=== PATIENT | male | born 1965 | race Two or more races ===

== ENCOUNTER 2023-01-31 11:19 | Emergency (ER) | payer OTHER, SELFPAY ==
--- NOTE | ~2023-01-31 | CT_ITS ---
EXAMINATION: CT ABDOMEN AND PELVIS WITH CONTRAST CLINICAL INFORMATION: Abdominal pain. Question ventral hernia. COMPARISON: None available. TECHNIQUE: Multidetector volumetric images were obtained from the superior aspect of the liver through the pubic symphysis following administration 85 mL of Omnipaque 350 intravenous contrast. Sagittal and coronal reformatted images were obtained on the technologist's workstation. Oral contrast: Yes This CT examination was performed using dose optimization techniques as appropriate, variously including the following: *Automated exposure control *Adjustment of mA and/or kV according to patient size (this includes techniques or standardized protocols for targeted exams where dose is matched to indication/reason for exam; i.e. extremities or head) *Use of iterative reconstruction technique DLP: 888 mGy-cm FINDINGS: LUNG BASES: The visualized lung bases are unremarkable. LIVER, GALLBLADDER, AND BILIARY TREE: Fatty liver. The liver is otherwise normal. The gallbladder is unremarkable with no evidence of radiopaque gallstones, gallbladder wall thickening, or obvious pericholecystic inflammatory changes. PANCREAS: Unremarkable. SPLEEN: Unremarkable. ADRENAL GLANDS: Unremarkable. KIDNEYS AND URETERS: There is a left renal cortical thinning or scarring. Small bilateral renal cysts. No imaging follow-up recommended. Question tiny 1 to 2 mm right lower pole renal stone coronal reconstructed image 49. Kidneys are otherwise normal. BLADDER: Unremarkable. GASTROINTESTINAL TRACT: The small and large bowel are unremarkable. The appendix is unremarkable. ABDOMINAL WALL: Postoperative change to the anterior abdominal wall. No hernia or fluid collection. LYMPH NODES: Normal. VASCULAR: Unremarkable. PELVIC VISCERA: Unremarkable. OSSEOUS STRUCTURES: Degenerative disc disease at L5-S1. CT/CT abdomen pelvis w IV con IMPRESSION: No acute findings. Fatty liver. Left renal cortical thinning or scarring. Question tiny right renal stone. Fleischner guidelines were followed.
--- NOTE | ~2023-01-31 | US_ITS ---
EXAMINATION: US SCROTUM CLINICAL INFORMATION: Left testicular swelling. COMPARISON: None available. TECHNIQUE: A sonogram of the scrotum was performed assessing trivedi-scale appearance and color Doppler flow. Spectral Doppler analysis of the arterial and venous flow were performed in the testes bilaterally. FINDINGS: RIGHT: Right testicle measures 3.7 x 2.2 x 2.7 cm, volume 11.5 mL. No focal testicular parenchymal lesions are visualized. Spectral Doppler analysis of the arterial and venous flow is normal in the right testis. Right epididymal head is normal in size. There is a small epididymal head cyst measuring 4 mm. There is a small right hydrocele. No right varicocele is seen. Right epididymal Doppler flow is normal. LEFT: Left testicle measures 3.1 x 2.1 x 2.2 cm, volume 7.4 mL. Left testicle echotexture is heterogeneous. No focal testicular parenchymal lesions are visualized. Spectral Doppler analysis of the arterial and venous flow is present but appears decreased in the left testis compared to the right. It is uncertain whether this could be related to the large hydrocele. Left epididymal head is normal in size. Small left epididymal head cyst measuring 4 mm. Large left hydrocele. This is minimally complex with several septations. No left varicocele is seen. Left epididymal Doppler flow is decreased. US/US scrotum IMPRESSION: Small heterogeneous left testicle. No focal lesion seen. Large left hydrocele. Arterial and venous flow documented to the left testicle but appears decreased compared to the right side. It is uncertain whether this is artifactual due to the large hydrocele. If there is clinical suspicion of torsion, nuclear medicine scan would be recommended. There is also slight decrease Doppler flow seen in the left epididymis. Small bilateral epididymal head cysts. Small right hydrocele.
[2023-01-31 11:48] VITALS: BP 150/104; PULSE 97; RESP 17; TEMP 36.6; O2SAT 96; BMI 24.3
--- NOTE | 2023-01-31 11:50 | ED_ITS ---
HPI - General Adult General Chief complaint: Abdominal Pain <VICTOR MANUEL Hall - Last Filed: 01/31/23 11:50> Stated complaint: Abd pain/Vomiting <VICTOR MANUEL Hall - Last Filed: 01/31/23 11:50> Time Seen by Provider: 01/31/23 16:04 <VICTOR MANUEL Hall - Last Filed: 01/31/23 11:50> Source: patient, family, RN notes reviewed and counter former <Harjinder Bland - Last Filed: 01/31/23 20:37> Mode of arrival: ambulatory <Harjinder Bland - Last Filed: 01/31/23 20:37> Limitations: language barrier <Harjinder Bland - Last Filed: 01/31/23 20:37> History of Present Illness HPI narrative: 57-year-old male presents for evaluation of multiple complaints. Patient reports he was mid to right-sided abdominal pain x1 month. He reports associated nausea and diarrhea. He states that he had an appendectomy and a hernia repair approximately 2 years ago Patient also complains of left scrotal swelling which has been present for at least 1 year as well. He states ?they told me that had a cyst or something. ? Denies any burning with urination Denies any fevers and chills He also reports a history of ?heartburn any time a eat or drink anything <Harjinder Bland - Last Filed: 01/31/23 20:37> Related Data Home medications: Previous Rx's Medication Instructions Recorded omeprazole 40 mg capsule,delayed 40 mg PO DAILY #14 caps 01/31/23 release <VICTOR MANUEL Hall - Last Filed: 01/31/23 11:50> Allergies/adverse reactions: Allergies Allergy/AdvReac Type Severity Reaction Status Date / Time No Known Allergies Allergy Verified 01/31/23 11:50 <VICTOR MANUEL Hall - Last Filed: 01/31/23 11:50> Review of Systems Constitutional: Constitutional: Reports as per HPI, Denies chills, Denies fatigue, Denies fever(s) and Denies headache(s) <Harjinder Bland - Last Filed: 01/31/23 20:37> ENT: Denies headache(s) <Harjinder Bland - Last Filed: 01/31/23 20:37> Cardiovascular: Cardiovascular: Denies chest pain and Denies dyspnea <Harjinder Bland - Last Filed: 01/31/23 20:37> Respiratory: Respiratory: Denies cough and Denies dyspnea <Harjinder Bland - Last Filed: 01/31/23 20:37> Gastrointestinal: Gastrointestinal: Reports abdominal pain, Denies constipation and Denies vomiting <Harjinder Bland - Last Filed: 01/31/23 20:37> Genitourinary: Genitourinary: Denies difficulty urinating and Denies dysuria <Harjinder Bland - Last Filed: 01/31/23 20:37> Neurologic: Denies headache(s) and Denies focal weakness <Harjinder Bland - Last Filed: 01/31/23 20:37> Endocrine: Endocrine: Denies fatigue <Harjinder Bland - Last Filed: 01/31/23 20:37> PMF Social History Social History: Social History Smoked in Last 30 Days: No Use of substances other than those prescribed or required for medical reasons: No Any prior treatment program specific to substance use: No Advance Directives: No Advance Directives Information Provided: No <VICTOR MANUEL Hall - Last Filed: 01/31/23 11:50> Physical Exam ED Vital Signs: Vital Signs - 24 hr 01/31/23 11:48 01/31/23 15:34 01/31/23 17:50 Temperature 97.9 F 98.8 F Pulse Rate 97 83 77 Respiratory Rate 17 16 16 Blood Pressure 150/104 H 129/97 H 141/93 H Pulse Oximetry 96 96 96 Oxygen Delivery Method Room Air Room Air Room Air BMI result Body Mass Index 24.3 <VICTOR MANUEL Hall - Last Filed: 01/31/23 11:50> Vital Signs - 24 hr 01/31/23 11:48 01/31/23 15:34 01/31/23 17:50 Temperature 97.9 F 98.8 F Pulse Rate 97 83 77 Respiratory Rate 17 16 16 Blood Pressure 150/104 H 129/97 H 141/93 H Pulse Oximetry 96 96 96 Oxygen Delivery Method Room Air Room Air Room Air BMI result Body Mass Index 24.3 <Harjinder Bland - Last Filed: 01/31/23 20:37> Const General: healthy appearing, comfortable, no acute distress, alert and awake < Last Filed: 01/31/23 20:37> Nutritional Appearance: well nourished < Last Filed: 01/31/23 20:37> Orientation/consciousness: patient oriented x3 < Last Filed: 01/31/23 20:37> HENMT Head: Yes normocephalic and Yes atraumatic < Last Filed: 01/31/23 20:37> Throat: Yes posterior oropharynx normal < Last Filed: 01/31/23 20:37> Eyes Eyelids: Yes eyelids normal < Last Filed: 01/31/23 20:37> Conjunctivae: conjunctivae normal < Last Filed: 01/31/23 20:37> Sclerae: sclerae normal < Last Filed: 01/31/23 20:37> Corneas: corneas normal < Last Filed: 01/31/23 20:37> Pupils: Equal, round and reactive pupils present < Last Filed: 01/31/23 20:37> EOM: EOMs intact bilaterally < Last Filed: 01/31/23 20:37> Neck Neck: Yes full ROM < Last Filed: 01/31/23 20:37> Resp Effort & Inspection: normal respiratory effort, able to speak in complete sentences, no audible wheezes and not labored < Last Filed: 01/31/23 20:37> Auscultation: clear to auscultation bilaterally < Last Filed: 01/31/23 20:37> Cardio Rate: regular rate < Last Filed: 01/31/23 20:37> Rhythm: regular rhythm < Last Filed: 01/31/23 20:37> GI Inspection: No distended < - Last Filed: 01/31/23 20:37> Palpation (GI): Soft to palpation, not firm, Tenderness to palpation present (GI) periumbilically and other (Large midline incision and the patient mostly tender on the right lateral side), no guarding and not rigid <Harjinder Kelley Last Filed: 01/31/23 20:37> Auscultation: normoactive bowel sounds <Harjinder O Last Filed: 01/31/23 20:37> Other: No palpable inguinal hernias. Patient does have left scrotal edema, no significant tenderness. No overlying skin changes. <Harjinder O Last Filed: 01/31/23 20:37> Skin General skin exam: no rashes or lesions noted and elasticity normal < Last Filed: 01/31/23 20:37> Neuro General: patient oriented x3 <Harjinder O Last Filed: 01/31/23 20:37> Cranial nerves: Yes CN's II-XII intact bilaterally, Yes Equal, round and reactive pupils present and Yes Bilaterally intact EOM present <Harjinder O Last Filed: 01/31/23 20:37> Cognition (Neuro): normal cognition <Harjinder O Last Filed: 01/31/23 20:37> Extrem Other: Moving all extremities well without any obvious deformities <Harjinder O Last Filed: 01/31/23 20:37> Course Course Course Narrative: RME performed by Allegra Garcia PA-C. Patient is 57 year old assigned male at presenting to the emergency department with abdominal pain / probable hernia. Labs ordered. Patient placed back in the waiting room pending room availability and results. <VICTOR MANUEL Hall Last Filed: 01/31/23 11:50> Reevaluation(s) Reevaluation #1: Patient's CT scan results did not show any acute findings. His pain is most likely due to postop pain as a had surgery 3 months ago. He was instructed to follow-up with his PCP regarding this. The patient has nausea I feel is most likely related to heartburn for which he only takes [id number] times. Will start him on omeprazole for 2 weeks. The patient's ultrasound shows a large left hydrocele which has been present for last 2 years. The patient denies any pain to the area, intermittent torsion is favored to be less likely. The patient will follow up with Urology given the large left hydrocele. <Harjinder Bland - Last Filed: 01/31/23 20:37> Time: 20:29 <Harjinder Bland - Last Filed: 01/31/23 20:37> Medications Administered Discontinued Medications Generic Name Dose Route Start Last Admin Trade Name Freq PRN Reason Stop Dose Admin Iohexol 100 ml 01/31/23 19:05 01/31/23 19:06 Iohexol 350 Mg/Ml 100 Ml Infus..Btl IV 01/31/23 19:06 85 ml ONCE ONE Administration <VICTOR MANUEL Hall - Last Filed: 01/31/23 11:50> Medications Administered Discontinued Medications Generic Name Dose Route Start Last Admin Trade Name Freq PRN Reason Stop Dose Admin Iohexol 100 ml 01/31/23 19:05 01/31/23 19:06 Iohexol 350 Mg/Ml 100 Ml Infus..Btl IV 01/31/23 19:06 85 ml ONCE ONE Administration <Harjinder Bland - Last Filed: 01/31/23 20:37> Medical Decision Making Medical Decision Making [facility] Narrative: 57-year-old male presents for evaluation of abdominal pain and left testicular swelling. Nausea issue appears acute as reports abdominal pain for least 1 month. Continues moves bowels, so less likely obstruction. The patient may have a ventral hernia in the right mid abdomen. We a CT scan to better evaluate. The patient does have left testicular swelling which he reports has been present for at least 1 year .I have a very low suspicion for testicular torsion. There are no overlying skin changes to suggest infectious process to the scrotum. <Harjinder Bland - Last Filed: 01/31/23 20:37> Differential Diagnosis Abdominal pain Postop pain Ventral hernia Spigelian hernia Hydrocele Varicocele Epididymitis UTI Constipation <Harjinder Bland - Last Filed: 01/31/23 20:37> Lab Data [facility] Lab Attestation statement: I reviewed the patient's lab results. <Harjinder Bland - Last Filed: 01/31/23 20:37> No significant lab abnormalities <Harjinder Bland - Last Filed: 01/31/23 20:37> Result Diagrams: 01/31/23 12:08 01/31/23 12:08 <VICTOR MANUEL Hall - Last Filed: 01/31/23 11:50> Labs: Lab Results 01/31/23 01/31/23 01/31/23 Range/Units 12:08 12:08 12:08 WBC 6.1 (4.8-10.8) X10*3/uL RBC 4.99 (4.60-5.80) X10*6/uL Hgb 15.6 (14.0-18.0) g/dl Hct 46.4 (42.0-52.0) % MCV 93.0 (80.0-98.0) fL MCH 31.3 (27.0-33.0) pg MCHC 33.6 (31.0-36.0) g/dl RDW 14.2 (11.0-16.0) % Plt Count 226 (160-400) X10*3/uL MPV 10.6 (9.4-12.4) fL Immature Gran % (Auto) 0.3 (0.0-0.4) % Neut % (Auto) 49.4 (45-73) % Lymph % (Auto) 39.6 (20-40) % Gove % (Auto) 8.6 (2-11) % Eos % (Auto) 1.8 (0-4) % Baso % (Auto) 0.3 (0-2) % Lymph # (Auto) 2.4 (1.2-4.9) X10*3/uL Gove # (Auto) 0.5 (0.1-1.2) X10*3/uL Eos # (Auto) 0.1 (0.0-0.4) X10*3/uL Baso # (Auto) 0.0 (0.0-0.2) X10*3/uL Abs Immat Gran (auto) 0.02 (0.00-0.03) X10*3/uL Absolute Neuts (auto) 3.0 (2.0-8.3) x10*3/uL Absolute Nucleated RBC 0.000 (0.0-0.012) X10*3/uL Nucleated RBC % (auto) 0.0 (0.0-0.2) /100WBC Sodium 140 (135-145) mmol/L Potassium 4.7 (3.3-5.1) mmol/L Chloride 106 (96-108) mmol/L Carbon Dioxide 28 (22-29) mmol/L Anion Gap 11 L (12-20) BUN 15 (9-16) mg/dL Creatinine 1.00 (0.5-1.4) mg/dL Estim Creat Clear Calc 79.5 Estimated GFR > 60 Random Glucose 82 (60-115) mg/dL Calcium 10.0 (8.4-10.2) mg/dL Magnesium 1.9 (1.6-2.6) mg/dL Total Bilirubin 0.3 (0.0-1.0) mg/dL AST 27 (5-37) U/L ALT 29 (0-40) U/L Alkaline Phosphatase 66 (39-117) U/L Total Protein 7.7 (6.5-8.0) g/dL Albumin 4.4 (3.5-5.0) g/dL Lipase 25 (8-78) U/L Urine Color Urine Appearance Urine pH (5.0-9.0) Ur Specific [place] (1.005-1.025) Urine Protein (Neg-Trace) mg/dL Urine Glucose (UA) (Negative) mg/dL Urine Ketones (Negative) mg/dL Urine Blood (Negative) Urine Nitrite (Negative) Ur Leukocyte Esterase (Negative) Urine RBC (0-2) /HPF Urine WBC (0-5) /HPF Ur Squamous Epith Cells (0-2) /HPF Urine Bacteria (None Seen) Hyaline Casts (0-2) /LPF COVID-19 ([facility]) Negative (Negative) COVID-19 Clin Com See Note 01/31/23 Range/Units 12:08 WBC (4.8-10.8) X10*3/uL RBC (4.60-5.80) X10*6/uL Hgb (14.0-18.0) g/dl Hct (42.0-52.0) % MCV (80.0-98.0) fL MCH (27.0-33.0) pg MCHC (31.0-36.0) g/dl RDW (11.0-16.0) % Plt Count (160-400) X10*3/uL MPV (9.4-12.4) fL Immature Gran % (Auto) (0.0-0.4) % Neut % (Auto) (45-73) % Lymph % (Auto) (20-40) % Gove % (Auto) (2-11) % Eos % (Auto) (0-4) % Baso % (Auto) (0-2) % Lymph # (Auto) (1.2-4.9) X10*3/uL Gove # (Auto) (0.1-1.2) X10*3/uL Eos # (Auto) (0.0-0.4) X10*3/uL Baso # (Auto) (0.0-0.2) X10*3/uL Abs Immat Gran (auto) (0.00-0.03) X10*3/uL Absolute Neuts (auto) (2.0-8.3) x10*3/uL Absolute Nucleated RBC (0.0-0.012) X10*3/uL Nucleated RBC % (auto) (0.0-0.2) /100WBC Sodium (135-145) mmol/L Potassium (3.3-5.1) mmol/L Chloride (96-108) mmol/L Carbon Dioxide (22-29) mmol/L Anion Gap (12-20) BUN (9-16) mg/dL Creatinine (0.5-1.4) mg/dL Estim Creat Clear Calc Estimated GFR Random Glucose (60-115) mg/dL Calcium (8.4-10.2) mg/dL Magnesium (1.6-2.6) mg/dL Total Bilirubin (0.0-1.0) mg/dL AST (5-37) U/L ALT (0-40) U/L Alkaline Phosphatase (39-117) U/L Total Protein (6.5-8.0) g/dL Albumin (3.5-5.0) g/dL Lipase (8-78) U/L Urine Color Yellow Urine Appearance Clear Urine pH 8.0 (5.0-9.0) Ur Specific [place] 1.020 (1.005-1.025) Urine Protein Negative (Neg-Trace) mg/dL Urine Glucose (UA) Negative (Negative) mg/dL Urine Ketones Negative (Negative) mg/dL Urine Blood Small (1+) H (Negative) Urine Nitrite Negative (Negative) Ur Leukocyte Esterase Negative (Negative) Urine RBC 6-10 H (0-2) /HPF Urine WBC 0-5 (0-5) /HPF Ur Squamous Epith Cells 0-2 (0-2) /HPF Urine Bacteria None Seen (None Seen) Hyaline Casts 0-2 (0-2) /LPF COVID-19 ([facility]) (Negative) COVID-19 Clin Com <VICTOR MANUEL Hall - Last Filed: 01/31/23 11:50> Lab Results 01/31/23 01/31/23 01/31/23 Range/Units 12:08 12:08 12:08 WBC 6.1 (4.8-10.8) X10*3/uL RBC 4.99 (4.60-5.80) X10*6/uL Hgb 15.6 (14.0-18.0) g/dl Hct 46.4 (42.0-52.0) % MCV 93.0 (80.0-98.0) fL MCH 31.3 (27.0-33.0) pg MCHC 33.6 (31.0-36.0) g/dl RDW 14.2 (11.0-16.0) % Plt Count 226 (160-400) X10*3/uL MPV 10.6 (9.4-12.4) fL Immature Gran % (Auto) 0.3 (0.0-0.4) % Neut % (Auto) 49.4 (45-73) % Lymph % (Auto) 39.6 (20-40) % Gove % (Auto) 8.6 (2-11) % Eos % (Auto) 1.8 (0-4) % Baso % (Auto) 0.3 (0-2) % Lymph # (Auto) 2.4 (1.2-4.9) X10*3/uL [place]ove # (Auto) 0.5 (0.1-1.2) X10*3/uL Eos # (Auto) 0.1 (0.0-0.4) X10*3/uL Baso # (Auto) 0.0 (0.0-0.2) X10*3/uL Abs Immat Gran (auto) 0.02 (0.00-0.03) X10*3/uL Absolute Neuts (auto) 3.0 (2.0-8.3) x10*3/uL Absolute Nucleated RBC 0.000 (0.0-0.012) X10*3/uL Nucleated RBC % (auto) 0.0 (0.0-0.2) /100WBC Sodium 140 (135-145) mmol/L Potassium 4.7 (3.3-5.1) mmol/L Chloride 106 (96-108) mmol/L Carbon Dioxide 28 (22-29) mmol/L Anion Gap 11 L (12-20) BUN 15 (9-16) mg/dL Creatinine 1.00 (0.5-1.4) mg/dL Estim Creat Clear Calc 79.5 Estimated GFR > 60 Random Glucose 82 (60-115) mg/dL Calcium 10.0 (8.4-10.2) mg/dL Magnesium 1.9 (1.6-2.6) mg/dL Total Bilirubin 0.3 (0.0-1.0) mg/dL AST 27 (5-37) U/L ALT 29 (0-40) U/L Alkaline Phosphatase 66 (39-117) U/L Total Protein 7.7 (6.5-8.0) g/dL Albumin 4.4 (3.5-5.0) g/dL Lipase 25 (8-78) U/L Urine Color Urine Appearance Urine pH (5.0-9.0) Ur Specific [place] (1.005-1.025) Urine Protein (Neg-Trace) mg/dL Urine Glucose (UA) (Negative) mg/dL Urine Ketones (Negative) mg/dL Urine Blood (Negative) Urine Nitrite (Negative) Ur Leukocyte Esterase (Negative) Urine RBC (0-2) /HPF Urine WBC (0-5) /HPF Ur Squamous Epith Cells (0-2) /HPF Urine Bacteria (None Seen) Hyaline Casts (0-2) /LPF COVID-19 ([facility]) Negative (Negative) COVID-19 Clin Com See Note 01/31/23 Range/Units 12:08 WBC (4.8-10.8) X10*3/uL RBC (4.60-5.80) X10*6/uL Hgb (14.0-18.0) g/dl Hct (42.0-52.0) % MCV (80.0-98.0) fL MCH (27.0-33.0) pg MCHC (31.0-36.0) g/dl RDW (11.0-16.0) % Plt Count (160-400) X10*3/uL MPV (9.4-12.4) fL Immature Gran % (Auto) (0.0-0.4) % Neut % (Auto) (45-73) % Lymph % (Auto) (20-40) % [place]ove % (Auto) (2-11) % Eos % (Auto) (0-4) % Baso % (Auto) (0-2) % Lymph # (Auto) (1.2-4.9) X10*3/uL Gove # (Auto) (0.1-1.2) X10*3/uL Eos # (Auto) (0.0-0.4) X10*3/uL Baso # (Auto) (0.0-0.2) X10*3/uL Abs Immat Gran (auto) (0.00-0.03) X10*3/uL Absolute Neuts (auto) (2.0-8.3) x10*3/uL Absolute Nucleated RBC (0.0-0.012) X10*3/uL Nucleated RBC % (auto) (0.0-0.2) /100WBC Sodium (135-145) mmol/L Potassium (3.3-5.1) mmol/L Chloride (96-108) mmol/L Carbon Dioxide (22-29) mmol/L Anion Gap (12-20) BUN (9-16) mg/dL Creatinine (0.5-1.4) mg/dL Estim Creat Clear Calc Estimated GFR Random Glucose (60-115) mg/dL Calcium (8.4-10.2) mg/dL Magnesium (1.6-2.6) mg/dL Total Bilirubin (0.0-1.0) mg/dL AST (5-37) U/L ALT (0-40) U/L Alkaline Phosphatase (39-117) U/L Total Protein (6.5-8.0) g/dL Albumin (3.5-5.0) g/dL Lipase (8-78) U/L Urine Color Yellow Urine Appearance Clear Urine pH 8.0 (5.0-9.0) Ur Specific [place] 1.020 (1.005-1.025) Urine Protein Negative (Neg-Trace) mg/dL Urine Glucose (UA) Negative (Negative) mg/dL Urine Ketones Negative (Negative) mg/dL Urine Blood Small (1+) H (Negative) Urine Nitrite Negative (Negative) Ur Leukocyte Esterase Negative (Negative) Urine RBC 6-10 H (0-2) /HPF Urine WBC 0-5 (0-5) /HPF Ur Squamous Epith Cells 0-2 (0-2) /HPF Urine Bacteria None Seen (None Seen) Hyaline Casts 0-2 (0-2) /LPF COVID-19 ([facility]) (Negative) COVID-19 Clin Com <Harjinder Bland - Last Filed: 01/31/23 20:37> Radiology Impression Discussion of test interpretation with radiology: I have reviewed the radiologist's reading. <Harjinder Bland - Last Filed: 0 01/31/23 20:37> Discharge Plan Discharge Clinical Impression: Postoperative abdominal pain, Hydrocele, left, Chronic GERD <VICTOR MANUEL Hall - Last Filed: 01/31/23 11:50> Patient Disposition: Home, Self-Care <VICTOR MANUEL Hall - Last Filed: 01/31/23 11:50> Instructions: Hydrocele (ED) <VICTOR MANUEL Hall - Last Filed: 01/31/23 11:50> Additional Instructions: Your abdominal pain is likely related to postop pain. You have a large left hydrocele which can be followed up with Urology causing or testicular swelling Take omeprazole 40 mg daily for the next 2 weeks for your heartburn Follow-up with your primary doctor as well as your general surgeon as well <VICTOR MANUEL Hall - Last Filed: 01/31/23 11:50> Prescriptions: New omeprazole 40 mg capsule,delayed release(DR/EC) 40 mg PO DAILY Qty: 14 0RF <VICTOR MANUEL Hall - Last Filed: 01/31/23 11:50> Referrals: Adair Mosley MD [Physician] - <VICTOR MANUEL Hall - Last Filed: 01/31/23 11:50>
[2023-01-31 12:22] LABS: MANUAL DIFF FLAG NO
[2023-01-31 12:32] LABS: Appearance Urine Clear; Color Urine Yellow; Glucose Urine UA Negative (Negative); Leukocyte Esterase Urine Negative (Negative); Nitrite Urine Negative (Negative); UMIC TRIGGER UACC YES; Urine Blood Small (1+) (Negative); Urine Ketones Negative (Negative); Urine Protein Negative (Neg-Trace)
[2023-01-31 12:34] LABS: Bacteria Urine None Seen (None Seen); Hyaline Casts Urine 0-2 /LPF (0-2); Squamous Epithelial Cell Urine 0-2 /HPF (0-2); WBC Urine 0-5 /HPF (0-5)
[2023-01-31 12:35] LABS: Basophils Percent Auto 0.3 % (0-2); Eosinophils Absolute Auto 0.1 X10*3/uL (0.0-0.4); Eosinophils Percent Auto 1.8 % (0-4); Hematocrit 46.4 % (42.0-52.0); Hemoglobin 15.6 g/dl (14.0-18.0); Imm Gran Abs Auto 0.02 X10*3/uL (0.00-0.03); Imm Gran Pct Auto 0.3 % (0.0-0.4); Lymphocytes Absolute Auto 2.4 X10*3/uL (1.2-4.9); Lymphocytes Percent Auto 39.6 % (20-40); Mean Corpuscular HGB Conc 33.6 g/dl (31.0-36.0); Mean Corpuscular Hemoglobin 31.3 pg (27.0-33.0); Mean Platelet Volume 10.6 fL (9.4-12.4); Monocytes Absolute Auto 0.5 X10*3/uL (0.1-1.2); Monocytes Percent Auto 8.6 % (2-11); Neutrophils Percent Auto 49.4 % (45-73); Platelet Count 226 X10*3/uL (160-400); Red Blood Count 4.99 X10*6/uL (4.60-5.80); Red Cell Distribution Width 14.2 % (11.0-16.0); White Blood Count 6.1 X10*3/uL (4.8-10.8)
[2023-01-31 12:43] LABS: COVID-19 Test Negative (Negative); IDNOW Serial# 08D9AD1C
[2023-01-31 12:48] LABS: Alanine Aminotransferase 29 U/L (0-40); Albumin Level 4.4 g/dL (3.5-5.0); Alkaline Phosphatase 66 U/L (39-117); Anion Gap 11 (12-20); Aspartate Amino Transferase 27 U/L (5-37); Bilirubin Total 0.3 mg/dL (0.0-1.0); Blood Urea Nitrogen 15 mg/dL (9-16); Carbon Dioxide 28 mmol/L (22-29); Chloride 106 mmol/L (96-108); Creatinine Clr Calc Pharmacy 79.5; Estimated Glomerular Filt Rate > 60; Glucose Random 82 mg/dL (60-115); Lipase 25 U/L (8-78); Magnesium 1.9 mg/dL (1.6-2.6); Potassium 4.7 mmol/L (3.3-5.1); Sodium 140 mmol/L (135-145); Total Protein 7.7 g/dL (6.5-8.0)
[2023-01-31 15:34] VITALS: BP 129/97; PULSE 83; RESP 16; TEMP 37.1; O2SAT 96
[2023-01-31 17:50] VITALS: BP 141/93; PULSE 77; RESP 16; O2SAT 96
[2023-01-31] MEDS: iohexoL 350 MG/ML 100 ML INFUS..BTL IV (19:06)
--- NOTE | 2023-01-31 19:37 | PC.NURSE ---
Pt aox4 resting at the bedside in no apparent distress. Reports lower abd pain, 10/10. Pending ct scan results and aware of plan of care. Will continue to monitor.
[2023-01-31 20:32] VITALS: BP 155/99; PULSE 73; RESP 16; TEMP 36.8; O2SAT 95
[2023-01-31 20:55] VITALS: RESP 18
[2023-01-31] MEDS: Morphine Sulfate 4 MG/ML CARTRIDGE 2 MG IVPUSH (20:55)
[2023-01-31 21:07] VITALS: BP 148/95; PULSE 80; RESP 12; TEMP 36.7; O2SAT 95
--- NOTE | 2023-01-31 21:14 | PC.NURSE ---
Pt aox4 resting at the bedside in no apparent distress. Reports improved pain after being medicated, /10 from 08/12. IV line removed with no complications. Pt tolerated well. Discharge instructions reviewed with pt. Pt verbalizes understanding.
== END 2023-01-31 21:16 | disposition home or self-care (01) ==
PROVIDERS: Physician Assistant Medical; Emergency Provider Emergency Medicine
DX: G89.18 Other acute postprocedural pain (principal); N43.3 Hydrocele, unspecified; R10.9 Unspecified abdominal pain; N50.89 Other specified disorders of the male genital organs; K21.9 Gastro-esophageal reflux disease without esophagitis; Z20.822 Contact with and (suspected) exposure to COVID-19
CPT/HCPCS: 74177; 76870; 80053; 81001; 83690; 83735; 85025; 87635; 96374; 99284; J2270; Q9967